=== PATIENT | male | born 1970 | race Caucasian/White ===

== ENCOUNTER 2021-08-12 17:52 | Emergency (ER) | payer OTHER ==
[2021-08-12] MEDS ORDERED: CEPHALEXIN MONOHYDRATE 500 MG CAPSULE (UD) PO ONE (18:04)
[2021-08-12 18:13] VITALS: BP 139/87; PULSE 73; TEMP 98.2; BMI 28.4
[2021-08-12] MEDS ORDERED: CEPHALEXIN MONOHYDRATE 500 MG CAPSULE (UD) ONE (18:13)
== END 2021-08-12 18:30 | disposition home or self-care (01) ==
LOC: FER 17:52
DX: M70.31 Other bursitis of elbow, right elbow (principal)
CPT/HCPCS: 99283-25